=== PATIENT | female | born 1945 | race Caucasian/White ===

== ENCOUNTER 2023-10-31 15:45 | Emergency (ER) | payer SELFPAY ==
[2023-10-31 15:47] VITALS: BP 172/81
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
[2023-10-31] MEDS: TYLENOL 650 MG PO (17:58)
[2023-10-31 18:00] VITALS: BP 138/85
[2023-10-31 19:29] VITALS: BP 141/74
== END 2023-10-31 19:30 | disposition home or self-care (01) ==
LOC: EMR 15:45
PROVIDERS: EMERGENCY PHYSICIAN Emergency Medicine; FAMILY PHYSICIAN Family Medicine
DX: S09.90XA Unspecified injury of head, initial encounter (principal); R07.89 Other chest pain; V49.50XA Passenger injured in collision with unspecified motor vehicles in traffic accident, initial encounter; Y92.410 Unspecified street and highway as the place of occurrence of the external cause; R03.0 Elevated blood-pressure reading, without diagnosis of hypertension; Z90.49 Acquired absence of other specified parts of digestive tract; Z88.5 Allergy status to narcotic agent
CPT/HCPCS: 99284; 70450; 72125

== ENCOUNTER 2024-04-14 06:37 | Outpatient (RCR) | payer MEDICARE, SELFPAY | END 2024-04-14 23:59 | disposition home or self-care (01) | LOC: RPT 06:37 | PROVIDERS: ATTENDING PHYSICIAN Physician Assistant; FAMILY PHYSICIAN Family Medicine | DX: N39.46 Mixed incontinence (principal); Z73.6 Limitation of activities due to disability | CPT/HCPCS: 97110; 97161; 97530 ==

== ENCOUNTER 2024-05-21 07:56 | Outpatient (RCR) | payer MEDICARE, SELFPAY | END 2024-05-21 23:59 | disposition home or self-care (01) | LOC: RPT 07:56 | PROVIDERS: ATTENDING PHYSICIAN Physician Assistant; FAMILY PHYSICIAN Family Medicine | DX: N39.46 Mixed incontinence (principal); Z73.6 Limitation of activities due to disability | CPT/HCPCS: 97110; 97530 ==

== ENCOUNTER 2024-06-18 07:15 | Outpatient (RCR) | payer MEDICARE, SELFPAY | END 2024-06-18 23:59 | disposition home or self-care (01) | LOC: RPT 07:15 | PROVIDERS: ATTENDING PHYSICIAN Physician Assistant; FAMILY PHYSICIAN Family Medicine | DX: N39.46 Mixed incontinence (principal); Z73.6 Limitation of activities due to disability | CPT/HCPCS: 97110; 97112 ==

== ENCOUNTER 2024-07-07 07:33 | Outpatient (RCR) | payer MEDICARE, SELFPAY | END 2024-07-07 23:59 | disposition home or self-care (01) | LOC: RPT 07:33 | PROVIDERS: ATTENDING PHYSICIAN Physician Assistant; FAMILY PHYSICIAN Family Medicine | DX: N39.46 Mixed incontinence (principal); Z73.6 Limitation of activities due to disability; R35.0 Frequency of micturition | CPT/HCPCS: 97110; 97112 ==

== ENCOUNTER 2024-08-16 19:28 | Emergency (ER) | payer MEDICARE, SELFPAY ==
[2024-08-16 19:28] VITALS: BMI 26.0
[2024-08-16 19:40] VITALS: BP 146/86
[2024-08-16 20:10] LABS: % Basophils 0.2 % (0-2); % Eosinophils 0.4 % (0-6); % Immature Granulocytes 0.3 % (0-0.5); % Lymphocytes 3.1 % (20.5-51.1); Absolute Lymphocytes 0.3 10^3/uL (1.2-3.4); Absolute Monocytes 0.3 10^3/uL (0.1-0.6); Absolute Neutrophils 9.4 10^3/uL (1.4-6.5); Hematocrit 40.9 % (37.0-47.0); Hemoglobin 14.1 g/dL (12.0-16.0); Mean Corp Hgb Conc. 34.5 g/dL (33.0-37.0); Mean Corpuscular Hgb 34.2 pg (27.0-31.0); Mean Corpuscular Volume 99.3 fL (81.0-99.0); Mean Platelet Volume 9.1 fL (7.4-10.4); Nucleated Red Blood Cells % 0 %; Platelet Count 276 10^3/uL (130-400); Red Blood Cell Count 4.12 10^6/uL (4.20-5.40); Red Cell Dist. Width 12.9 % (11.5-14.5); White Blood Cell Count 10.1 10^3/uL (4.8-10.8)
[2024-08-16 20:42] LABS: ALT (SGPT) 16 U/L (0-35); AST (SGOT) 19 U/L (14-36); Albumin 4.3 g/dl (3.5-5.0); Alkaline Phosphatase 81 U/L (38-126); Blood Urea Nitrogen 17 mg/dl (7-17); Calcium 9.7 mg/dl (8.4-10.2); Carbon Dioxide 24 mmol/L (22-30); Glucose 134 mg/dl (70-99); Total Bilirubin 0.7 mg/dl (0.2-1.3); Total Protein 7.1 g/dl (6.3-8.2); eGFR > 60.00
[2024-08-16 21:16] LABS: Chloride 99 mmol/L (98-107); Potassium 4.3 mmol/L (3.5-5.1); Sodium 136 mmol/L (135-145)
--- NOTE | 2024-08-16 21:56 | ED.GENMED ---
History of Present Illness
General
Chief Complaint: Abdominal Pain
Time Seen by Provider: 08/16/24 21:56
History of Present Illness
History of Present Illness:
TIME OF INITIAL ENCOUNTER: 10 PM
HPI: At around 1 PM today, the patient developed lower abdominal discomfort. This was associate with multiple rounds of vomiting. She never had any diarrhea. Approximately 2 years ago, she had a small bowel obstruction that occurred the day after
a urologic procedure. The discomfort currently is overall improving but she would like something 'mild' to help take the edge off. Overall she is improved currently. No fevers. Denies any other symptoms.
EXAM:
GENERAL: Well appearing in no distress
HEENT: Moist oral mucosa
CARDIOVASCULAR: No murmurs, normal heart rate, regular rhythm, No chest wall tenderness
PULMONARY: No respiratory distress, breath sounds are clear and equal
ABDOMEN: Soft with no peritoneal signs, minimal if any lower abdominal tenderness, no upper abdominal tenderness
NEUROLOGIC: Excellent strength all extremities, no coordination deficits
PSYCHIATRIC: Appropriate mental status, normal insight and judgement
EXTREMITIES: Nontender, no edema, moves all extremities equally
SKIN: No rash, no lesions
NUMBER AND COMPLEXITY OF PROBLEMS ADDRESSED AT THE ENCOUNTER
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
� Acute Exacerbation and/or Progression of Chronic Illness: This is an acute problem
� Differential Diagnosis includes: Bowel obstruction, ileus, constipation, mesenteric adenitis, low suspicion for foodborne illness/gastroenteritis given the lack of diarrhea
AMOUNT AND/OR COMPLEXITY OF DATA TO BE REVIEWED AND ANALYZED
� I performed an independent evaluation of and my interpretation is:
EKG:
CT: CT imaging suggests mild enterocolitis, no bowel obstruction, she has had cholecystectomy and appendectomy
X-rays:
Laboratory Studies: White count 10.1, hemoglobin normal chemistries unremarkable
Other:
� Review of other/old records: I reviewed records, in 2019, the patient had a 15 cm segment of small bowel herniated through prior port site, necrotic bowel resected with primary stapled anastomosis in 2020
� Clinical information was obtained by an independent historian: I spoke to daughter at bedside
� Prescriptions/Medications Considered but not given:
� Further testing considered but not performed:
RISK OF COMPLICATIONS AND/OR MORBIDITY OR MORTALITY OF PATIENT MANAGEMENT
� Social determinants of health affecting care: Lives at home by herself
� Discussion with other providers:
� Escalation of care including admission/observation vs risk of discharge considered:the patient presents with lower abdominal pain with overall spontaneous improvement however some discomfort persist. She never had any
diarrhea. Labs unremarkable. Will obtain CT imaging given patient's prior history.
ANY OTHER UPDATES:
12:46 AM: I reassessed patient after she received IV fluids, Toradol, and Zofran. She overall feels significantly improved and feels comfortable going home. Will send prescription for Zofran to her pharmacy. CT imaging suggests mild enterocolitis
however she is improved and appears comfortable on reassessment.
Past History
Past History
ED Past Medical History: None
ED Past Surgical History: Cholecystectomy, Gynecological and Other (masectomy)
Social History
Tobacco: Non-smoker
Personal:
Phy Exam
Physical Exam
Physical Exam:
See HPI
Course
Orders/Labs/Results
Orders:
Orders
08/16/24 20:02
Complete Blood Count/With Diff Urgent
Comprehensive Metabolic Panel Urgent
08/16/24 22:05
Ketorolac [Toradol] 15 mg .ROUTE .STK-MED ONE
Ondansetron Injectable [Zofran] 4 mg .ROUTE .STK-MED ONE
08/16/24 22:06
0.9% Sodium Chloride 500 ml [Nss] 500 ml IV BOLUS
Ketorolac [Toradol] 15 mg IV NOW STA
Ondansetron Injectable [Zofran] 4 mg IV NOW STA
08/17/24 00:30
CT Abd/pelvis W Iv Cont Urgent
Reason For Exam: lower pain resolving vomiting; prior sbo
Abnormal Lab Results
08/16/24
20:02
RBC 4.12 L 10^6/uL
(4.20-5.40)
MCV 99.3 H fL
(81.0-99.0)
MCH 34.2 H pg
(27.0-31.0)
Absolute Neuts (auto) 9.4 H 10^3/uL
(1.4-6.5)
Absolute Lymphs (auto) 0.3 L 10^3/uL
(1.2-3.4)
Neutrophils % 93.0 H %
(42.2-75.2)
Lymphocytes % 3.1 L %
(20.5-51.1)
Glucose 134 H mg/dl
(70-99)
08/16/24 20:02
08/16/24 20:02
Vital Signs
Initial and Last Documented VS:
Initial Vital Signs
Temp Pulse Resp BP Pulse Ox
36.9 C 97 18 146/86 97
08/16/24 19:40 08/16/24 19:40 08/16/24 19:40 08/16/24 19:40 08/16/24 19:40
Last Documented Vital Signs
Temp Pulse Resp BP Pulse Ox
36.9 C 73 11 133/64 96
08/16/24 19:40 08/17/24 00:30 08/17/24 00:30 08/17/24 00:25 08/17/24 00:30
*Critical Care Note
Total Time (30-74mins, 75-104mins- exclusive of procedures): Not Applicable
ED Attending Note
-
Portions of this chart may have been created with voice recognition software.� Occasional wrong word or��sound alike� substitutions may have occurred due to the inherent limitations of voice recognition software.
Discharge Plan
Departure
Prescriptions:
No Action
calcium carbonate 500 MG tablet
500 mg PO DAILY
cholecalciferol (vitamin D3) 2,000 UNIT tablet
2,000 unit PO DAILY
tramadol [Ultram] 50 MG tablet
50 mg PO Q6HPRN PRN (Reason: pain) Qty: 12 0RF
Referrals:
NONE,* [Active] -
Interventions
Interventions:
*Risk Screen - Suicide Last Done: 08/16/24 19:40
*General Assessment Last Done: 08/16/24 19:40
*Neglect/Abuse Screening Last Done: 08/16/24 19:40
ED- Fall Risk Assessment Last Done: 08/16/24 22:03
XK-Xssssl-Pjqydxmamf Assessment Last Done: 08/16/24 22:03
Discharge Date and Time
Print Language: CHADIAN
[2024-08-16 22:11] VITALS: BP 155/65
[2024-08-16] MEDS: NSS 500 IV (22:13)
[2024-08-16] MEDS: TORADOL 15 MG IV (22:13)
[2024-08-16] MEDS: ZOFRAN 4 MG IV (22:13)
--- NOTE | 2024-08-16 23:55 | EDRN ---
Pt.'s visitor approached RN twice now, asking when pt. is able to go to CT. RN spoke w/ CT, again, and CT is not ready for pt. CT states will call this RN when ready for pt. Pt.'s visitor once again informed, RN apologized for wait time.
[2024-08-17 00:25] VITALS: BP 133/64
== END 2024-08-17 01:07 | disposition home or self-care (01) ==
LOC: EMR 19:28
PROVIDERS: Emergency Medicine; EMERGENCY PHYSICIAN Emergency Medicine; FAMILY PHYSICIAN Family Medicine
DX: R10.30 Lower abdominal pain, unspecified (principal); R11.10 Vomiting, unspecified; Z90.49 Acquired absence of other specified parts of digestive tract; Z87.19 Personal history of other diseases of the digestive system
CPT/HCPCS: 96374; 96375; 96361; 99284; 74177; 80053; 85025; Q9967

== ENCOUNTER → 2024-09-16 13:08 | Outpatient (REF) | payer MEDICARE, SELFPAY | LOC: MRI 3T 13:08 | PROVIDERS: ATTENDING PHYSICIAN Student in an Organized Health Care Education/Training Program; FAMILY PHYSICIAN Family Medicine | DX: M25.511 Pain in right shoulder (principal) | CPT/HCPCS: 73221 ==

== ENCOUNTER → 2024-10-04 08:41 | Outpatient (REF) | payer MEDICARE, SELFPAY ==
[2024-10-04 09:30] LABS: % Basophils 0.7 % (0-2); % Immature Granulocytes 0.2 % (0-0.5); % Lymphocytes 25.1 % (20.5-51.1); % Monocytes 7.8 % (1.7-9.3); % Neutrophils 63.2 % (42.2-75.2); Absolute Eosinophils 0.2 10^3/uL (0-0.7); Absolute Lymphocytes 1.4 10^3/uL (1.2-3.4); Absolute Monocytes 0.4 10^3/uL (0.1-0.6); Absolute Neutrophils 3.4 10^3/uL (1.4-6.5); Hematocrit 38.5 % (37.0-47.0); Hemoglobin 12.9 g/dL (12.0-16.0); Mean Corp Hgb Conc. 33.5 g/dL (33.0-37.0); Mean Corpuscular Hgb 34.5 pg (27.0-31.0); Mean Corpuscular Volume 102.9 fL (81.0-99.0); Mean Platelet Volume 9.4 fL (7.4-10.4); Nucleated Red Blood Cells % 0 %; Platelet Count 275 10^3/uL (130-400); Red Blood Cell Count 3.74 10^6/uL (4.20-5.40); White Blood Cell Count 5.4 10^3/uL (4.8-10.8)
[2024-10-04 11:15] LABS: Blood Urea Nitrogen 15 mg/dl (7-17); Carbon Dioxide 26 mmol/L (22-30); Chloride 102 mmol/L (98-107); Glucose 106 mg/dl (70-99); Potassium 4.8 mmol/L (3.5-5.1); Sodium 141 mmol/L (135-145); eGFR > 60.00
== END ==
LOC: REG 08:41
PROVIDERS: ATTENDING PHYSICIAN Specialist; FAMILY PHYSICIAN Family Medicine
DX: Z01.818 Encounter for other preprocedural examination (principal)
CPT/HCPCS: 36415; 80048; 85025; 93005

== ENCOUNTER 2024-10-05 06:31 | Emergency (ER) | payer MEDICARE, SELFPAY ==
[2024-10-05 06:34] VITALS: BP 140/78
--- NOTE | 2024-10-05 07:07 | ED.GENMED ---
History of Present Illness
<Antonia Steinberg MD, Resident - Last Filed: 10/05/24 08:50>
General
Chief Complaint: Abdominal Pain
Time Seen by Provider: 10/05/24 06:37
History of Present Illness
History of Present Illness:
This is an 79-year-old female who presents to the ER complaining of lower abdominal tenderness. Patient reports symptoms started yesterday after she had yogurt. She felt a dull gas pain that she describes as an 8 out of 10 in the lower abdominal
area. Pain did not radiate anywhere else. She had a bowel movement afterwards which was normal consistency but did not relieve pain. She has tried Gas-X for pain but symptoms have not improved. She denies fevers, chills, no urinary frequency.
She denies chest pain, shortness of breath. She admits mild nausea and one-time vomiting episode yesterday with symptom improved this morning. She is scheduled for a right shoulder replacement next week, but denies using more Tylenol/ibuprofen
than usual.
Past History
<Antonia Steinberg MD, Resident - Last Filed: 10/05/24 08:50>
Past History
ED Past Medical History: None
ED Past Surgical History: Cholecystectomy, Gynecological and Other (masectomy)
Social History
Tobacco: Non-smoker
Alcohol: Occasional
Drug: None
Personal:
Phy Exam
<Antonia Steinberg MD, Resident - Last Filed: 10/05/24 08:50>
General Physical Exam
General Presentation: well appearing and no apparent distress
Cardiovascular Exam
Cardiovascular Exam: regular rate/rhythm and no edema
Pulmonary Exam
Pulmonary Exam: lungs clear and no respiratory distress
Gastrointestinal Exam
Gastrointestinal Exam: normal bowel sounds, soft, non distended and tender (Tender to palpation in the lower abdominal area, next to the groin)
Neurological Exam
Neurological Exam: alert and oriented x3
Musculoskeletal Exam
Musculoskeletal Exam: full ROM
Psychiatric Exam
Psychiatric Exam: normal mood/affect
Course
<Antonia Steinberg MD, Resident - Last Filed: 10/05/24 08:50>
Orders/Labs/Results
Orders:
Orders
10/05/24 07:06
Electrocardiogram (*1) Urgent
Reason for Study: Abdominal Pain
EKG- Treatment ONCE
10/05/24 07:09
Dicyclomine [Bentyl] 20 mg PO NOW STA
10/05/24 06:47
10/05/24 06:47
Vital Signs
Initial and Last Documented VS:
Initial Vital Signs
Temp Pulse Resp BP Pulse Ox
97.5 F 108 20 140/78 97
10/05/24 06:34 10/05/24 06:34 10/05/24 06:34 10/05/24 06:34 10/05/24 06:34
Last Documented Vital Signs
Temp Pulse Resp BP Pulse Ox
97.5 F 108 20 140/78 97
10/05/24 06:34 10/05/24 06:34 10/05/24 06:34 10/05/24 06:34 10/05/24 06:34
<Tripp Merrill, DO - Last Filed: 10/05/24 07:15>
Orders/Labs/Results
Orders:
Orders
10/05/24 07:06
Electrocardiogram (*1) Urgent
Reason for Study: Abdominal Pain
EKG- Treatment ONCE
10/05/24 07:09
Dicyclomine [Bentyl] 20 mg PO NOW STA
10/05/24 06:47
10/05/24 06:47
Vital Signs
Initial and Last Documented VS:
Initial Vital Signs
Temp Pulse Resp BP Pulse Ox
97.5 F 108 20 140/78 97
10/05/24 06:34 10/05/24 06:34 10/05/24 06:34 10/05/24 06:34 10/05/24 06:34
Last Documented Vital Signs
Temp Pulse Resp BP Pulse Ox
97.5 F 108 20 140/78 97
10/05/24 06:34 10/05/24 06:34 10/05/24 06:34 10/05/24 06:34 10/05/24 06:34
<Antonia Steinberg MD, Resident - Last Filed: 10/05/24 08:50>
MDM/Problems Addressed
MDM/Problems Addressed:
This is an 79-year-old female who presents with lower abdominal discomfort that she describes as a gas pain. Pain does not radiate anywhere else. Patient is in no distress, abdomen soft, nondistended, tender in the lower abdominal area next to the
groin. Will order EKG. She completed blood work yesterday for preprocedure right shoulder replacement which were unremarkable. She recently had a CT scan with IV contrast in July due to abdominal pain which was unremarkable at that time. At
this time, will give a dose of Bentyl and monitor. No signs of obstruction, no signs of Infectious etiology, no fevers she is well-appearing and in no distress
<Antonia Steinberg MD, Resident - Last Filed: 10/05/24 08:50>
*Critical Care Note
Total Time (30-74mins, 75-104mins- exclusive of procedures): Not Applicable
<Antonia Steinberg MD, Resident - Last Filed: 10/05/24 08:50>
Update Note
Update Note:
Evaluated patient at bedside after administration of dicyclomine. Patient reports symptoms are resolved. Physical examination with a nontender abdomen. Will discharge on Bentyl and advised to follow-up with PCP
ED Attending Note
<Antonia Steinberg MD, Resident - Last Filed: 10/05/24 08:50>
-
Portions of this chart may have been created with voice recognition software.� Occasional wrong word or��sound alike� substitutions may have occurred due to the inherent limitations of voice recognition software.
<Tripp Merrill, DO - Last Filed: 10/05/24 07:15>
ED Attending Note
Patient seen and examined by attending physician: Yes
I performed a history and physical exam of patient and discussed management with resident, I reviewed resident's note and agree with documented findings and plan of care.: Yes
ED Attending Note:
I have seen and evaluated the patient with a [id number] encounter. I have spoken to the resident and involved in the medical history, the physical exam, medical decision making.
Evaluation and management service: agree unless noted differently below.
Results interpretation: agree unless noted differently below.
Focused HPI: 79-year-old female presenting for evaluation of abdominal discomfort described as gassy pain. This occurred yesterday after eating yogurt. Patient is currently being worked up for shoulder replacement. She denies any current
increased use of Motrin. Denies any trouble passing her stool. She states her last bowel movement was yesterday. She denies urinary symptoms. She denies vomiting.
Physical exam: Sitting in bed comfortable. Heart regular rate and rhythm. Abdomen soft and nontender
Medical Decision Making: Will obtain screening EKG and give dose of Bentyl. Patient had recent blood work and recent CT scan of her abdomen. She has a nontender exam and is extremely well-appearing nontoxic.
Given no fever, doubt infectious etiology. Given no real tenderness, doubt surgical pathology. She has no clinical exam findings to suggest obstruction.
Discharge Plan
Departure
Patient Disposition: Home (Routine Discharge)
Date of Disposition: 10/05/24
Time of Disposition: 08:37
Patient with high blood pressure during this ER visit?: Yes
Discharge Problem:
Abdominal pain
Discharge Problem:
(Ruled Out): Strangulated ventral incisional hernia
Prescriptions:
New
dicyclomine 20 mg tablet
20 mg PO BID Qty: 10 0RF
No Action
calcium carbonate 500 MG tablet
500 mg PO DAILY
cholecalciferol (vitamin D3) 2,000 UNIT tablet
2,000 unit PO DAILY
tramadol [Ultram] 50 MG tablet
50 mg PO Q6HPRN PRN (Reason: pain) Qty: 12 0RF
ondansetron HCl 4 mg tablet
4 mg PO Q6H PRN (Reason: nausea and vomiting) Qty: 12 0RF
Referrals:
Awilda Ward MD [Family Provider] - Follow up in 2-3 days
Interventions
Interventions:
*Risk Screen - Suicide Last Done: 10/05/24 06:34
*General Assessment Last Done: 10/05/24 06:44
*Neglect/Abuse Screening Last Done: 10/05/24 06:34
*ED- Fall Risk Assessment Last Done: 10/05/24 06:44
*ED COVID-19 Vaccine History Last Done: 10/05/24 06:44
XR-Drnrks-Nnfwqxpewh Assessment Last Done: 10/05/24 07:15
Discharge Date and Time
Print Language: MACEDONIAN
[2024-10-05] MEDS: BENTYL 20 MG PO (07:32)
== END 2024-10-05 09:30 | disposition home or self-care (01) ==
LOC: EMR 06:31
PROVIDERS: EMERGENCY PHYSICIAN Student in an Organized Health Care Education/Training Program; FAMILY PHYSICIAN Family Medicine
DX: R10.30 Lower abdominal pain, unspecified (principal); R11.2 Nausea with vomiting, unspecified; R03.0 Elevated blood-pressure reading, without diagnosis of hypertension; Z90.49 Acquired absence of other specified parts of digestive tract; Z88.5 Allergy status to narcotic agent
CPT/HCPCS: 99283; 93005

== ENCOUNTER → 2024-10-06 15:08 | Outpatient (REF) | payer MEDICARE, SELFPAY ==
[2024-10-06 16:39] LABS: % Basophils 0.4 % (0-2); % Eosinophils 0.3 % (0-6); % Immature Granulocytes 0.1 % (0-0.5); % Lymphocytes 16.4 % (20.5-51.1); % Monocytes 12.1 % (1.7-9.3); % Neutrophils 70.7 % (42.2-75.2); Absolute Lymphocytes 1.3 10^3/uL (1.2-3.4); Absolute Monocytes 0.9 10^3/uL (0.1-0.6); Absolute Neutrophils 5.4 10^3/uL (1.4-6.5); Hematocrit 42.4 % (37.0-47.0); Hemoglobin 14.6 g/dL (12.0-16.0); Mean Corp Hgb Conc. 34.4 g/dL (33.0-37.0); Mean Corpuscular Hgb 34.5 pg (27.0-31.0); Mean Corpuscular Volume 100.2 fL (81.0-99.0); Mean Platelet Volume 9.5 fL (7.4-10.4); Nucleated Red Blood Cells % 0 %; Platelet Count 304 10^3/uL (130-400); Red Blood Cell Count 4.23 10^6/uL (4.20-5.40); Red Cell Dist. Width 12.9 % (11.5-14.5); White Blood Cell Count 7.6 10^3/uL (4.8-10.8)
[2024-10-06 16:50] LABS: ALT (SGPT) 19 U/L (0-35); AST (SGOT) 23 U/L (14-36); Albumin 4.4 g/dl (3.5-5.0); Alkaline Phosphatase 85 U/L (38-126); Blood Urea Nitrogen 33 mg/dl (7-17); Carbon Dioxide 27 mmol/L (22-30); Glucose 112 mg/dl (70-99); Lipase 33 U/L (23-300); Total Protein 7.4 g/dl (6.3-8.2); eGFR > 60.00
[2024-10-06 17:06] LABS: Calcium 10.4 mg/dl (8.4-10.2); Chloride 99 mmol/L (98-107); Potassium 4.7 mmol/L (3.5-5.1); Sodium 139 mmol/L (135-145)
== END ==
LOC: RAD 15:08
PROVIDERS: ATTENDING PHYSICIAN Physician Assistant
DX: K43.2 Incisional hernia without obstruction or gangrene (principal); R63.0 Anorexia; R11.0 Nausea; R10.84 Generalized abdominal pain
CPT/HCPCS: 36415; 74177; 80053; 83690; 85025; Q9967

== ENCOUNTER 2024-10-06 23:48 | Inpatient (IN) | payer MEDICARE, SELFPAY ==
[2024-10-06 21:47] VITALS: BP 125/88
--- NOTE | 2024-10-06 22:48 | ED.GENMED ---
History of Present Illness
General
Chief Complaint: Abdominal Pain
Source: patient, previous radiology exam (CT abdomen pelvis performed this evening showing small bowel obstruction. Laboratory studies this afternoon, unremarkable.) and previous hospital records (Hospitalization April 2020 for small bowel
obstruction related to strangulated ventral incisional hernia)
Exam Limitations: none
Time Seen by Provider: 10/06/24 22:24
Nursing documentation reviewed up to this point in time: agreed with
History of Present Illness
History of Present Illness:
This is an 79-year-old woman who has remote history of left breast cancer, remote history of laparoscopic cholecystectomy in the as well as history of small bowel obstruction April 2020 related to strangulated ventral incisional hernia. She
required small bowel resection during that hospitalization April 2020.
Evaluated in this ED July of this year with generalized lower abdominal pain, CAT scan showed mildly dilated loops of small bowel but no evidence of obstruction, thought to be related to enteritis.
She was evaluated in this ED yesterday with complaints of lower abdominal pain that began 2 days ago, bloating. She was given a dose of Bentyl with improvement. Discharged to home.
Follow-up with PCP today however patient continues with abdominal pain, crampy in nature, abdominal bloating, nausea, vomiting.
Repeat blood work today again unremarkable with normal white blood cell count. Outpatient CT abdomen pelvis however shows small bowel obstruction with multiple loops of dilated small bowel with transition site in the upper abdomen, proximal to the
anastomosis. Transitioning small bowel demonstrates circumferential wall thickening which may be reactive inflammation.
PCP notified patient of CAT scan results and recommended she return to the ED.
Patient admits that she has had no oral intake for the past 2 days. Abdominal pain is crampy, moderate in nature. Intermittent nausea. No fever no chills.
Past History
Past History
ED Past Medical History: Cancer (Left breast cancer) and Other (Small bowel obstruction April 2020 related to strangulated ventral incisional hernia)
ED Past Surgical History: Bowel resection (Small bowel resection-strangulated ventral incisional hernia April 2020), Cholecystectomy (1971), Gynecological (Left breast cancer-bilateral mastectomy 2007; hysterectomy, bladder lift) and Other
(masectomy)
Social History
Tobacco: Non-smoker
Alcohol: Occasional
Drug: None
Personal:
Living: with family
Employment: Retired
Family History
Family History: Other (Noncontributory)
Phy Exam
Physical Exam
Physical Exam:
GENERAL: 79-year-old woman appears somewhat younger than stated age, bright and alert, pleasant, appears in no acute distress. Daughter is accompanying.
EYE: anicteric
NECK: Supple, nontender, no meningismus, no significant adenopathy.
ENT: posterior pharynx is clear, oral mucosa is dry. No rhinorrhea.
CARDIAC: Regular rate and rhythm. no murmur.
LUNGS: Clear breath sounds bilaterally, no acute respiratory distress, no wheezes/rales/rhonchi
ABDOMEN: Soft, minimally distended, moderate generalized tenderness mid to lower abdomen, no r/g, no cvat. Mildly hyperactive bowel sounds.
NEUROLOGICAL: Alert and oriented x3, no focal neuro deficits. Gait is steady.
SKIN: Warm and dry, normal color, skin intact. No rash.
MUSCULOSKELETAL: No C/C/E. peripheral pulses are full and equal b/l. No palpable tenderness.
PSYCH: Normal and appropriate interaction.
Course
Orders/Labs/Results
Orders:
Orders
10/06/24 22:25
Lactic Acid Urgent
0.9% Sodium Chloride 1000 ml [Nss] 1,000 ml IV BOLUS
10/06/24 22:43
GI tube insertion- Treatment ONCE
10/06/24 22:47
HYDROmorphone [Dilaudid] 0.5 mg IV NOW STA
Ondansetron Injectable [Zofran] 4 mg IV NOW STA
Vital Signs
Initial and Last Documented VS:
Initial Vital Signs
Temp Pulse Resp BP Pulse Ox
98.5 F 108 16 125/88 97
10/06/24 21:47 10/06/24 21:47 10/06/24 21:47 10/06/24 21:47 10/06/24 21:47
Last Documented Vital Signs
Temp Pulse Resp BP Pulse Ox
98.5 F 108 16 125/88 97
10/06/24 21:47 10/06/24 21:47 10/06/24 21:47 10/06/24 21:47 10/06/24 21:47
MDM/Problems Addressed
Differential Diagnosis Includes:
Patient presents with ongoing abdominal pain, nausea, vomiting that began [address] shows small bowel obstruction likely related to adhesions.
Laboratory studies from this afternoon unremarkable with normal white blood cell count, normal H&H. Mild macrocytosis is stable and unchanged.
Chemistries show moderate prerenal azotemia with BUN of 33, has trended up from 15 yesterday. Clinically patient is moderately dehydrated. Consistent with poor oral intake over the past 2 days accompanied with nausea/vomiting.
Will check lactic acid, assess for potential ischemic bowel.
Overall hemodynamically stable.
Will initiate IV fluid resuscitation, IV Dilaudid for pain, (has tolerated dilaudid in the past) Zofran for nausea.
Will plan for NG tube insertion to low intermittent suction.
Will admit to hospital service.
Plan for general surgery consult.
Chronic conditions affecting care: Previous abdomnial surgery
Acute Exacerbation and/or Progression of Chronic Illness: Previous abdomnial surgery
*Radiology
Radiology exam reviewed: radiology read reviewed
*Pulse Oximetry
Patient hypoxic: no
*Critical Care Note
Total Time (30-74mins, 75-104mins- exclusive of procedures): Not Applicable
ED Attending Note
-
Portions of this chart may have been created with voice recognition software.� Occasional wrong word or��sound alike� substitutions may have occurred due to the inherent limitations of voice recognition software.
Discharge Plan
Departure
Patient Disposition: Admit
Date of Disposition: 10/06/24
Time of Disposition: 23:00
Admit to: Med/Surg
Admit to doctor: Remedios
Presentation/result/management discussed w/ accepting MD/DO: Hospitalist
Discharge Problem:
SBO (small bowel obstruction), Acute dehydration
Prescriptions:
No Action
calcium carbonate 500 MG tablet
500 mg PO DAILY
cholecalciferol (vitamin D3) 2,000 UNIT tablet
2,000 unit PO DAILY
dicyclomine 20 mg tablet
20 mg PO BID Qty: 10 0RF
Theragen Tablet
1 tab PO DAILY
acetaminophen [Tylenol Extra Strength] 500 mg Tablet
1,000 mg PO Q6HPRN PRN (Reason: mild pain)
ascorbic acid (vitamin C) [Vitamin C] 500 mg Tablet
500 mg PO DAILY
ferrous sulfate 325 mg (65 mg iron) Tablet
325 mg PO Q48H
vitamin B complex Tablet
1 tab PO DAILY
vitamin E 268 mg (400 unit) Capsule
268 mg PO DAILY
biotin 5 mg Tablet
5 mg PO DAILY
ondansetron HCl 4 mg tablet
4 mg PO Q6HPRN PRN (Reason: nausea and vomiting)
Referrals:
Awilda Ward MD [Family Provider] -
Interventions
Interventions:
*Risk Screen - Suicide Last Done: 10/06/24 21:48
*General Assessment Last Done: 10/06/24 22:24
*Neglect/Abuse Screening Last Done: 10/06/24 21:48
*ED COVID-19 Vaccine History Last Done: 10/06/24 22:24
Discharge Date and Time
Print Language: SENEGALESE
[2024-10-06] MEDS: NSS 1000 IV (22:55)
[2024-10-06] MEDS: DILAUDID 0.5 MG IV (22:55)
[2024-10-06] MEDS: ZOFRAN 4 MG IV (22:56)
[2024-10-06 22:58] VITALS: BP 151/71
[2024-10-06 23:00] VITALS: BP 148/73
[2024-10-06 23:11] LABS: Lactic Acid 1.5 mmol/L (0.7-2.0)
--- NOTE | 2024-10-06 23:17 | W.PN.UPDATE ---
Update Note
Progress Note Update
Patient seen in conjunction with LUMBER TRIPPER. I agree with the findings and physical. I concur with assessment and plan unless otherwise stated.
Briefly, he is an 79-year-old with past medical history of left breast cancer, history of multiple surgeries including a remote laparoscopic cholecystectomy, history of small bowel obstruction in 2019 related to strangulated ventral incisional
hernia status post bowel resection, she has had laparscopic Hysterectomy and BSO, Cystocele Repair and Bladder Lift complaining with generalized abdominal pain.
Patient was evaluated in the emergency department 1 year ago with complaints of lower abdominal pain for 2 days and bloating. She was treated with Bentyl with improvement. However after returning home patient continued to have abdominal pain and
nausea bloating and vomiting. She is physician before obtaining outpatient CT scan and blood work. The CT scan shows a new small bowel obstruction with dilated loops of bowel and a transition site in the of the upper abdomen, proximal to the
anastomosis. There is some demonstrated circumferential wall thickening which may be reactive or inflammatory.
Emergency Department today, she was afebrile, blood pressure was 125/88 with pulse of 108 she was satting 97% on room air.
White count was 7.6, hemoglobin 14.6 ambulate 3-4. Electrolytes BUN/creatinine were all normal. LFTs were unremarkable. Lactate negative.
Abdomen had benign appearance, no rebound or guarding and non-tender after 1 dose of dilaudid. Normal active bowel sounds noted.
Assessment and plan
79 y.o with h/o multiple abdominal surgery coming in w/ 2 -3 days of abdominal pain and found to have SBO with transition point. She had nausea and vomiting as well. She is currently afebrile, hemodynamically stable and comfortable appearing.
- admit to med/surg
- npo for now
- antiemetics, pain control
- NG decompression
- maintenance fluids
- f/u abd xray in am
- surgery consultation
DVT PPx - lovenox sq
Code status
--- NOTE | 2024-10-06 23:29 | HPS.HSE ---
Family Physician
-
Family Physician: Awilda Ward
Chief Complaint
-
Abdominal Pain
History of Present Illness
Patient is an 79 y/o female past medical history of small bowel obstruction secondary to strangulated incisional hernia who presents with abdominal pain. Patient developed generalized abdominal cramping two days ago. She was seen in the emergency
department yesterday at which time it was felt her pain was related to gas and she was given Bentyl. She continued with abdominal pain and saw her PCP earlier today who ordered a CT scan which revealed a small bowel obstruction. Patient reports
continued abdominal cramping and associated dry heaves.
Medical History
Past Medical History
Past Medical History: Reports Other
Additional Past Medical History:
Breast Cancer
Small Bowel Obstruction secondary to Strangulated Incisional Hernia
Past Surgical History: Reports Other
Additional Past Surgical History:
Bilateral Mastectomy
Open Cholecystectomy
Open Appendectomy
Supracervical Hysterectomy with Bilateral BSO
Sacral Colpopexy
Small Bowel Resection for Strangulated Ventral Incision Hernia
Social History
Tobacco: Non-smoker
Alcohol: Occasional
Family History
Family History: Not pertinent
Allergies / Home Medications
Allergies reflects when Allergies were last updated in [facility].
Home Medications with original date entered in [facility]
Allergy/Medication List:
Allergies
Allergy/AdvReac Type Severity Reaction Status Date / Time
codeine [Codeine] Allergy Hives Verified 10/05/24 06:36
Home Medications
calcium carbonate 500 mg PO DAILY Supplement 05/03/20
cholecalciferol (vitamin D3) 50 mcg (2,000 unit) tablet 2,000 unit PO DAILY Supplement 05/03/20
dicyclomine 20 mg tablet 20 mg PO BID #10 tabs 10/05/24
acetaminophen 500 mg tablet (Tylenol Extra Strength) 1,000 mg PO Q6HPRN PRN mild pain 10/06/24
ascorbic acid (vitamin C) 500 mg tablet (Vitamin C) 500 mg PO DAILY 10/06/24
biotin 5 mg tablet 5 mg PO DAILY 10/06/24
ferrous sulfate 325 mg (65 mg iron) tablet 325 mg PO Q48H 10/06/24
ondansetron HCl 4 mg tablet 4 mg PO Q6HPRN PRN nausea and vomiting 10/06/24
therapeutic multivitamin 1 tab PO DAILY 10/06/24
vitamin B complex 1 tab PO DAILY 10/06/24
vitamin E 268 mg (400 unit) capsule 268 mg PO DAILY 10/06/24
Review of Systems
-
A 12 point ROS was completed and negative except as noted: Yes
Constitutional: Denies Fever
Respiratory: Denies Cough or Trouble Breathing
Cardiac: Denies Chest Pain or Palpitations
Abdomen/GI: Reports See HPI
Physical Exam
Vital Signs
Vital Signs
Temp Pulse Resp BP Pulse Ox
98.5 F 84 16 148/73 96
10/06/24 21:47 10/06/24 23:15 10/06/24 23:15 10/06/24 23:00 10/06/24 22:30
Physical Exam
General: Comfortable and Conversant
HEENT: Anicteric and Moist mucous membranes
Respiratory: Clear and Non Labored Respirations
Cardiac: S1/S2 and Regular Rhythm
GI: Soft, Non Tender (Following dose of Dilaudid given in ED) and Other (Slightly hypoactive bowel sounds )
Rectal: Deferred by Provider
Musculoskeletal: No Clubbing, No Cyanosis and No Edema
Skin: Warm and Dry
Neuro: Awake, Alert, Oriented and Nonfocal/grossly intact
Psych: Calm
Laboratory Results
-
Laboratory Results
Lactic Acid 1.5 mmol/L (0.7-2.0) 10/06/24 22:51
Laboratory Tests
10/06/24
16:28
WBC 7.6
Hgb 14.6
Hct 42.4
Plt Count 304
Sodium 139
Potassium 4.7
Chloride 99
Carbon Dioxide 27
BUN 33 H
Creatinine 0.9
Glucose 112 H
Abd/Pelvis CT Scan:
Small bowel obstruction with transition in the upper abdomen, proximal to the anastomosis.
Data Reviewed
-
CT Scan: Report Reviewed by me
Lab Data: Labs Reviewed by me
Impression/Plan
-
Small Bowel Obstruction
-Consult General Surgery
-Place NG Tube
-Continue NPO/IVFs
-Continue Zofran prn nausea
-Continue IV pain meds prn
-Check Abd X-Ray in AM to follow-up contrast from CT scan
Hx Breast Cancer s/p Bilateral Mastectomy
DVT proph: Lovenox
Code Status: Full Code
[2024-10-07] VITALS: BP 141/65
[2024-10-07 00:55] VITALS: BP 150/71; BMI 24.2
[2024-10-07] MEDS: NSS 1000 IV ×2 (01:36→14:12)
--- NOTE | 2024-10-07 01:47 | TRANSFER ---
Received pt from ED at 0055 dx SBO. Rashmi garcia NGT to LIWS. Pt denied pain. Pt AAOx4 able to make all needs known. VS WNL. Pt instructed on use of call pierre for all needs. Call pierre within reach, bed in lowest position.
[2024-10-07 07:10] VITALS: BP 132/60
[2024-10-07 07:49] LABS: Hematocrit 32.5 % (37.0-47.0); Hemoglobin 11.1 g/dL (12.0-16.0); Mean Corp Hgb Conc. 34.2 g/dL (33.0-37.0); Mean Corpuscular Hgb 34.6 pg (27.0-31.0); Mean Corpuscular Volume 101.2 fL (81.0-99.0); Mean Platelet Volume 9.5 fL (7.4-10.4); Platelet Count 226 10^3/uL (130-400); Red Blood Cell Count 3.21 10^6/uL (4.20-5.40); Red Cell Dist. Width 12.7 % (11.5-14.5); White Blood Cell Count 5.2 10^3/uL (4.8-10.8)
--- NOTE | 2024-10-07 08:28 | W.PN.HOSP.TC ---
Today's Communication/Plan
-
Clamp NG tube if okay with surgeon
Assessment / Plan
Assessment / Plan
79-year-old presented with abdominal pain
10/06/2024-CT abdomen with IV and oral contrast-small bowel obstruction with transition in the upper abdomen proximal to the anastomosis. Transitioning small bowel demonstrate circumferential wall thickening may be reactive inflammation. Prior
cholecystectomy with stable prominence of the intrahepatic and extrahepatic biliary ducts.
EKG sinus rhythm no ischemia
CVS: S1-S2 normal
Chest: CTA B/L
Abdomen: Soft, NGT, BS appreciated
Extremities: No edema, normal pulses
[employer]: Non focal exam
# Small bowel obstruction
History of multiple surgeries including remote laparoscopic cholecystectomy, history of small bowel obstruction in 2019 related to strangulated ventral hernia status post bowel resection, laparoscopic hysterectomy and BSO, cystocele repair and
bladder lift.
Keep n.p.o. with IV fluids and NG tube
Surgery consulted
Pain control and nausea control
Repeat imaging today x-ray-shows oral contrast passing through the large bowel.
Clamp NG tube if okay with surgeon
# History of breast cancer status post bilateral mastectomy
# DVT prophylaxis-Lovenox
# Full code
Anticipated Discharge: Within 24 hours
Subjective/Interval History
-
Date of Service: October 07, 2024
Objective Data
-
Labs:
Laboratory Results
10/07/24
07:28
WBC 5.2
Hgb 11.1 L D
Hct 32.5 L
Plt Count 226 D
Sodium Pending
Potassium Pending
Chloride Pending
Carbon Dioxide Pending
BUN Pending
Creatinine Pending
Glucose Pending
Calcium Pending
Vital Signs:
Vital Signs
Temp Pulse Resp BP Pulse Ox
99.0 F 91 16 132/60 98
10/07/24 07:10 10/07/24 07:10 10/07/24 07:10 10/07/24 07:10 10/07/24 07:10
I&O
10/06/24 10/07/24 10/08/24
06:59 06:59 06:59
Intake Total 375 / 375
Output Total 600 / 600
Balance -225 / -225
[2024-10-07 08:36] LABS: Blood Urea Nitrogen 26 mg/dl (7-17); Calcium 7.3 mg/dl (8.4-10.2); Carbon Dioxide 25 mmol/L (22-30); Chloride 107 mmol/L (98-107); Estimated Creatinine Clearance 61 ml/min; Glucose 69 mg/dl (70-99); Potassium 3.3 mmol/L (3.5-5.1); Sodium 139 mmol/L (135-145); eGFR > 60.00
--- NOTE | 2024-10-07 08:55 | CON.GS ---
Consultation
-
Reason for Consultation: SBO
Medical History
-
Chief Complaint: Abdominal pain/distention/nausea vomiting
History of Present Illness:
Patient is an 79-year-old female previously known to our surgical service after hospitalization 05/04/2020 for an acute small bowel obstruction due to early postop incarcerated hernia. She underwent ex lap, small bowel resection and repair of
incisional hernia. Postoperative course was unremarkable. She states that she has done well since then without any symptoms suggestive of recurrent bowel obstruction.
She was in her usual baseline state of health until Friday. She had yogurt and dates for breakfast. Over the weekend she did eat out at an [place] restaurant but felt well after these meals. Friday around lunchtime and into the
afternoon she began developing progressive abdominal distention and discomfort which led into pain by the evening hours. She had 1 bowel movement during the day but it did not alleviate her symptoms. Due to persistent pain and discomfort she
presented for emergency department evaluation on Friday10/05/24. Reviewing medical records no imaging was obtained, she was told she was having gas pains and discharge.
Her symptoms persisted and she continued to be unable to tolerate any p.o. intake. She followed up with her primary care yesterday who ordered an outpatient stat CT scan for imaging identifying a small bowel obstruction prompting return to ER and
current hospitalization.
She still has some discomfort in the suprapubic and lower/central abdomen. Some relief with NG tube in place. No further nausea vomiting. No significant passage of flatus or any bowel movement.
Past Medical History
Past Medical History: Other (History of breast cancer)
Past Surgical History: Other (Appendectomy, cholecystectomy, laparoscopic hysterectomy and sacrocolpopexy, exploratory laparotomy, small bowel resection, ventral incisional hernia repair 05/03/2020)
Social History
Tobacco: Non-Smoker
Living: With Family
Employment: Retired
Family History
Family History: Reviewed & Not Pertinent
Allergies / Home Medications
Allergy/AdvReac Type Severity Reaction Status Date / Time
codeine [Codeine] Allergy Hives Verified 10/05/24 06:36
�Medication �Instructions �Recorded �Confirmed �Type
calcium carbonate 500 mg PO DAILY Supplement 05/03/20 10/07/24 History
cholecalciferol (vitamin D3) 50 2,000 unit PO DAILY Supplement 05/03/20 10/07/24 History
mcg (2,000 unit) tablet
dicyclomine 20 mg tablet 20 mg PO BID #10 tabs 10/05/24 10/06/24 Rx
acetaminophen 500 mg tablet 1,000 mg PO Q6HPRN PRN mild pain 10/06/24 10/07/24 History
(Tylenol Extra Strength)
ascorbic acid (vitamin C) 500 mg 500 mg PO DAILY Supplement 10/06/24 10/07/24 History
tablet (Vitamin C)
biotin 5 mg tablet 5 mg PO DAILY Supplement 10/06/24 10/07/24 History
ferrous sulfate 325 mg (65 mg 325 mg PO Q48H Supplement 10/06/24 10/07/24 History
iron) tablet
ondansetron HCl 4 mg tablet 4 mg PO Q6HPRN PRN nausea and 10/06/24 10/06/24 History
vomiting
therapeutic multivitamin 1 tab PO DAILY Supplement 10/06/24 10/07/24 History
vitamin B complex 1 tab PO DAILY Supplement 10/06/24 10/07/24 History
vitamin E 268 mg (400 unit) capsule 268 mg PO DAILY Supplement 10/06/24 10/07/24 History
Review of Systems
-
History Source: Patient
All other systems: Negative unless noted
A 10 point review of systems was completed, and was negative except as per HPI.
Physical Exam
Vital Signs
Temp Pulse Resp BP Pulse Ox
99.0 F 91 16 132/60 98
10/07/24 07:10 10/07/24 07:10 10/07/24 07:10 10/07/24 07:10 10/07/24 07:10
10/06/24 10/07/24 10/08/24
06:59 06:59 06:59
Actual Weight 61.859 kg
Body Mass Index (BMI) 24.2
Lab Results
10/07/24 07:28
10/07/24 07:28
WBC 5.2 10^3/uL (4.8-10.8) 10/07/24 07:28
Hgb 11.1 g/dL (12.0-16.0) L D 10/07/24 07:28
Hct 32.5 % (37.0-47.0) L 10/07/24 07:28
Plt Count 226 10^3/uL (130-400) D 10/07/24 07:28
Physical Exam
General: Well Developed, Well Nourished, No Apparent Distress and Comfortable
HEENT: Normocephalic, Anicteric and Other (Nasogastric tube in place, left naris)
Respiratory: Non Labored Respirations
Cardiac: Regular Rhythm
GI: Soft, Tender (Mild tender palpation periumbilical, suprapubic and bilateral lower quadrants. No rebound rigidity or guarding), Distended (Softly distended, not tense) and Incisions (Multiple prior surgical scars. No obvious hernias.)
Neuro: Awake and AO x 3
Psych: Calm
Data Reviewed
-
CT Scan: Image Personally Visualized and interpreted, Report Reviewed by me and Discussed with Patient
Assessment / Plan
-
Assessment: 79-year-old female presenting with small bowel obstruction, likely adhesive related given her past abdominal surgical history.
CT imaging personally reviewed and interpreted. Radiologist report reviewed as well. Significant gastric and proximal small bowel dilation with oral contrast which gradually tapers down into the region of the sacral promontory and right Isiah
pelvis leading towards her right lower quadrant small bowel anastomosis. Distal to this the small bowel is generally collapsed. Colon is relatively decompressed as well. Slight wall thickening of the small bowel just proximal to the obstruction.
No significant free fluid. No pneumatosis. No radiographic sign suggestive of a closed-loop obstruction.
Plan: Given clinical stability and no radiographic signs of immediate bowel threat or compromise recommend initial attempt at medical management.
NG tube decompression
Follow-up abdominal x-ray imaging today to evaluate for possible progression of oral contrast ingested during yesterday CT imaging
IV fluid hydration, bowel rest
Will follow
--- NOTE | 2024-10-07 09:46 | CM ---
Reviewed the chart notes and spoke with the patient at the bedside. Patient currently with NGT to lws. The patient resides alone in a one story home with no steps to enter. The patient reports no DME or SNF in the past, but has had VN. Patient
could not recall then name of the agency. The patient confirmed her pharmacy of choice is the [facility]. CM continues to be available to patient/family and is monitoring medical plan for needs at discharge.
Plan: Discharge plans will depend on the patient's progress.
--- NOTE | 2024-10-07 10:04 | W.PN.SURGUPD ---
Surgical Update
Surgical Update
Abdominal x-ray imaging reviewed. Oral contrast from yesterday has progressed throughout the colon indicating partial or resolving small bowel obstruction.
Maintain NG tube decompression for now but assess outputs throughout the day today and consider subsequent removal if diminishing
[2024-10-07] MEDS: PROTONIX IV 40 MG IV (10:33)
[2024-10-07 15:45] VITALS: BP 141/57
--- NOTE | 2024-10-07 16:42 | W.PN.SURGUPD ---
Surgical Update
Surgical Update
Patient seen and examined in follow-up.
Daughter at bedside.
Minimal NG tube output today
No flatus or BM yet but no return of abdominal pain. No nausea or vomiting.
Abdomen soft, nondistended and nontender on examination.
Given radiographic and clinical improvement removed NG tube
Okay for sips of clears and ice chips tonight but hold on further dietary advancement until tomorrow.
[2024-10-07] MEDS: LOVENOX 40 MG SC (17:20)
[2024-10-07] MEDS: OFIRMEV 100 IV (21:06)
[2024-10-07 23:25] VITALS: BP 146/65
[2024-10-08] MEDS: NSS 1000 IV (00:21)
[2024-10-08 08:23] LABS: Glucose 52 mg/dl (70-99)
[2024-10-08] MEDS: PROTONIX IV 40 MG IV (08:30)
[2024-10-08 08:48] LABS: Glucose - Point of Care 79 mg/dl (70-99)
[2024-10-08 08:50] VITALS: BP 162/69
--- NOTE | 2024-10-08 08:55 | W.PN.GS2 ---
Addendum entered and electronically signed by Augusto Dale MD 10/08/24 09:10:
Patient seen and examined with surgical PROVIDER SERVICE REPRESENTATIVE. Agree with documented progress note.
Overall patient feeling much better from presenting symptoms.
Tolerated liquids with cramping no pain
No nausea.
No flatus or BM but feels urge to go and some intestinal gurgling.
AFVSS
NAD AAO x 3
ABD: Soft, nondistended, only very slight tenderness on palpation. Tympanitic to percussion.
A/P: 79-year-old female with probable resolving PSBO -radiographically improved and clinically improving.
P.o. challenge starting with full liquids probable advancement later to low residue
Possible DC within the next 24 hours pending dietary tolerance
Will follow.
Original Note:
Today's Communication / Plan
-
Advance diet
Assessment / Plan
-
79 yo female presenting with SBO likely adhesive noted on CT imaging
XR in follow up on 10/07 demonstrated contrast throughout the large bowel
NGT removed on 10/07, tolerating sips of clears
AFVSS
Hypoglycemia this am
--Start full liquids and follow for PO tolerance
--Analgesics/antiemetics prn
--Medical management as per primary team
Subjective Data
-
Date of Service: October 08, 2024
Patient seen and examined at bedside with Dr Dale. Denies n/v. Not passing flatus or stools yet but feels she has had a lot of intestinal gurgling. Tolerating sips of clears. No abdominal pain but some minimal cramping overnight.
Objective Data
-
Intake and Output
10/07/24 10/08/24 10/09/24
06:59 06:59 06:59
Intake Total 375 / 375 2860 / 2860
Output Total 600 / 600
Balance -225 / -225 2860 / 2860
Intake:
Oral fluids 360 / 360
IV fluids (Total) 375 / 375 2400 / 2400
IV piggybacks 100 / 100
Output:
Gastrointestinal tube output ( 600 / 600
Total)
[place] Sump 350 / 350
Other:
Number of approximated MODERATE 1
amounts of urine
Number of approximated LARGE 1
amounts of urine
Vital Signs
Temp Pulse Resp BP Pulse Ox
98.3 F 95 16 162/69 95
10/08/24 08:50 10/08/24 08:50 10/08/24 08:50 10/08/24 08:50 10/08/24 08:50
Lab Results
10/07/24 07:28
Calcium Cancelled 10/08/24 07:19
Physical Exam
-
NAD
ABD soft, ND, mild tenderness to middle abdomen
[2024-10-08 09:44] LABS: Blood Urea Nitrogen 23 mg/dl (7-17); Calcium 8.8 mg/dl (8.4-10.2); Carbon Dioxide 24 mmol/L (22-30); Chloride 108 mmol/L (98-107); Estimated Creatinine Clearance 61 ml/min; Glucose 102 mg/dl (70-99); Potassium 3.8 mmol/L (3.5-5.1); Sodium 140 mmol/L (135-145); eGFR > 60.00
[2024-10-08] MEDS: NSS IV (12:48)
--- NOTE | 2024-10-08 14:13 | W.PN.HOSP.TC ---
Addendum entered and electronically signed by Hilda Resendiz MD 10/08/24 16:50:
Dictation- [id number]
Original Note:
Today's Communication/Plan
-
Discharge after dinner if tolerates
Assessment / Plan
Assessment / Plan
79-year-old presented with abdominal pain
10/06/2024-CT abdomen with IV and oral contrast-small bowel obstruction with transition in the upper abdomen proximal to the anastomosis. Transitioning small bowel demonstrate circumferential wall thickening may be reactive inflammation. Prior
cholecystectomy with stable prominence of the intrahepatic and extrahepatic biliary ducts.
EKG sinus rhythm no ischemia
CVS: S1-S2 normal
Chest: CTA B/L
Abdomen: Soft, NGT, BS appreciated
Extremities: No edema, normal pulses
DIE ENGRAVER: Non focal exam
# Small bowel obstruction
History of multiple surgeries including remote laparoscopic cholecystectomy, history of small bowel obstruction in 2019 related to strangulated ventral hernia status post bowel resection, laparoscopic hysterectomy and BSO, cystocele repair and
bladder lift.
Resolving. Symptoms are much better.
Surgery consulted and following
Repeat imaging today x-ray-shows oral contrast passing through the large bowel.
Started on a diet. Patient seems to be tolerating
# History of breast cancer status post bilateral mastectomy
# DVT prophylaxis-Lovenox
# Full code
D/W Surgeon
Anticipated Discharge: Today
Subjective/Interval History
-
Date of Service: October 08, 2024
Objective Data
-
Labs:
Laboratory Results
10/08/24 10/08/24
07:19 09:16
Sodium Cancelled 140
Potassium Cancelled 3.8
Chloride Cancelled 108 H
Carbon Dioxide Cancelled 24
BUN Cancelled 23 H
Creatinine Cancelled 0.6
Glucose 52 L* 102 H
Calcium Cancelled 8.8 D
Vital Signs:
Vital Signs
Temp Pulse Resp BP Pulse Ox
98.3 F 95 16 162/69 95
10/08/24 08:50 10/08/24 08:50 10/08/24 08:50 10/08/24 08:50 10/08/24 08:50
I&O
10/07/24 10/08/24 10/09/24
06:59 06:59 06:59
Intake Total 375 / 375 2860 / 2860
Output Total 600 / 600
Balance -225 / -225 2860 / 2860
--- NOTE | 2024-10-08 15:03 | CM ---
Patient seen at bedside. IMM completed and signed form placed on chart. Patient stated that she does not need VN and daughter will provide transportation home. CM will continue to follow for discharge planning needs.
Plan; home with no needs.
[2024-10-08 16:00] VITALS: BP 162/99
--- NOTE | 2024-10-08 16:50 | W.DS.TRANS ---
DC Summary - Instrument Technologist
-
Discharge Instructions:
Discharge Diagnosis/Procedures Small bowel obstruction
Diet Low Residue
Activity As tolerated
Driving Restrictions As prior to admission
Instructions:
Stand-Alone Forms:
Changes to Home Medications: No
Discharge Medications:
DC Medications w/original date entered in [facility]
calcium carbonate 500 mg PO DAILY Supplement 05/03/20
cholecalciferol (vitamin D3) 50 mcg (2,000 unit) tablet 2,000 unit PO DAILY Supplement 05/03/20
acetaminophen 500 mg tablet (Tylenol Extra Strength) 1,000 mg PO Q6HPRN PRN mild pain 10/06/24
ascorbic acid (vitamin C) 500 mg tablet (Vitamin C) 500 mg PO DAILY Supplement 10/06/24
biotin 5 mg tablet 5 mg PO DAILY Supplement 10/06/24
ferrous sulfate 325 mg (65 mg iron) tablet 325 mg PO Q48H Supplement 10/06/24
ondansetron HCl 4 mg tablet 4 mg PO Q6HPRN PRN nausea and vomiting 10/06/24
therapeutic multivitamin 1 tab PO DAILY Supplement 10/06/24
vitamin B complex 1 tab PO DAILY Supplement 10/06/24
dicyclomine 20 mg tablet 20 mg PO BID PRN Pain #10 tabs 10/08/24
Home Medication Changes
Pending Results: No
[2024-10-08] MEDS: LOVENOX SC (17:04)
[2024-10-08] MEDS: LOVENOX 40 MG SC (17:41)
== END 2024-10-08 17:48 | disposition home or self-care (01) | DRG 390 ==
LOC: 2 SOUTH 23:48
PROVIDERS: Physician Assistant Medical; ADMITTING PHYSICIAN Internal Medicine; ATTENDING PHYSICIAN Hospitalist; EMERGENCY PHYSICIAN Emergency Medicine; FAMILY PHYSICIAN Family Medicine; OTHER PHYSICIAN Surgery
DX: K56.51 Intestinal adhesions [bands], with partial obstruction (principal); E86.0 Dehydration; E16.2 Hypoglycemia, unspecified; Z79.899 Other long term (current) drug therapy; Z85.3 Personal history of malignant neoplasm of breast; Z88.5 Allergy status to narcotic agent; Z90.13 Acquired absence of bilateral breasts and nipples; Z90.49 Acquired absence of other specified parts of digestive tract; Z90.711 Acquired absence of uterus with remaining cervical stump; Z98.0 Intestinal bypass and anastomosis status
CPT/HCPCS: 43752; 74018; 80048; 82947; 82962; 83605; 85027; 96361; 96374; 96375; 99284

== ENCOUNTER → 2024-11-10 09:23 | Outpatient (REF) | payer MEDICARE, SELFPAY ==
[2024-11-10 11:26] LABS: Blood Urea Nitrogen 11 mg/dl (7-17); Calcium 10.1 mg/dl (8.4-10.2); Carbon Dioxide 30 mmol/L (22-30); Chloride 104 mmol/L (98-107); Glucose 97 mg/dl (70-99); Potassium 5.3 mmol/L (3.5-5.1); Sodium 141 mmol/L (135-145); eGFR > 60.00
[2024-11-10 12:12] LABS: % Basophils 0.7 % (0-2); % Eosinophils 1.2 % (0-6); % Immature Granulocytes 0.4 % (0-0.5); % Lymphocytes 25.3 % (20.5-51.1); % Neutrophils 64.4 % (42.2-75.2); Absolute Eosinophils 0.1 10^3/uL (0-0.7); Absolute Lymphocytes 1.4 10^3/uL (1.2-3.4); Absolute Monocytes 0.5 10^3/uL (0.1-0.6); Absolute Neutrophils 3.6 10^3/uL (1.4-6.5); Hematocrit 40.4 % (37.0-47.0); Hemoglobin 13.4 g/dL (12.0-16.0); Mean Corp Hgb Conc. 33.2 g/dL (33.0-37.0); Mean Corpuscular Hgb 34.4 pg (27.0-31.0); Mean Corpuscular Volume 103.9 fL (81.0-99.0); Mean Platelet Volume 10.2 fL (7.4-10.4); Nucleated Red Blood Cells % 0 %; Platelet Count 286 10^3/uL (130-400); Red Blood Cell Count 3.89 10^6/uL (4.20-5.40); Red Cell Dist. Width 12.7 % (11.5-14.5); White Blood Cell Count 5.6 10^3/uL (4.8-10.8)
== END ==
LOC: RAD 09:23
PROVIDERS: ATTENDING PHYSICIAN Specialist; FAMILY PHYSICIAN Family Medicine
DX: Z01.818 Encounter for other preprocedural examination (principal)
CPT/HCPCS: 36415; 80048; 85025

== ENCOUNTER 2024-11-17 08:48 | Outpatient (RCR) | payer MEDICARE, SELFPAY | END 2024-11-17 23:59 | disposition home or self-care (01) | LOC: RPT 08:48 | PROVIDERS: ATTENDING PHYSICIAN Specialist; FAMILY PHYSICIAN Family Medicine | DX: M75.121 Complete rotator cuff tear or rupture of right shoulder, not specified as traumatic (principal); Z73.6 Limitation of activities due to disability; M62.81 Muscle weakness (generalized); X50.1XXD Overexertion from prolonged static or awkward postures, subsequent encounter | CPT/HCPCS: 97010; 97110; 97162 ==

== ENCOUNTER → 2024-11-25 10:22 | Outpatient (REF) | payer MEDICARE, SELFPAY ==
[2024-11-25 11:34] LABS: Blood Urea Nitrogen 21 mg/dl (7-17); Calcium 9.4 mg/dl (8.4-10.2); Carbon Dioxide 23 mmol/L (22-30); Chloride 107 mmol/L (98-107); Glucose 103 mg/dl (70-99); Potassium 4.5 mmol/L (3.5-5.1); Sodium 137 mmol/L (135-145); eGFR > 60.00
== END ==
LOC: REG 10:22
PROVIDERS: ATTENDING PHYSICIAN Physician Assistant
DX: E87.5 Hyperkalemia (principal)
CPT/HCPCS: 36415; 80048

== ENCOUNTER 2024-12-08 07:50 | Outpatient (RCR) | payer MEDICARE, SELFPAY | END 2024-12-08 23:59 | disposition home or self-care (01) | LOC: RPT 07:50 | PROVIDERS: ATTENDING PHYSICIAN Specialist; FAMILY PHYSICIAN Family Medicine | DX: M75.121 Complete rotator cuff tear or rupture of right shoulder, not specified as traumatic (principal); Z73.6 Limitation of activities due to disability; M62.81 Muscle weakness (generalized); X50.1XXD Overexertion from prolonged static or awkward postures, subsequent encounter | CPT/HCPCS: 97010; 97110; 97140 ==

== ENCOUNTER 2025-01-19 09:08 | Outpatient (RCR) | payer MEDICARE, SELFPAY | END 2025-01-19 23:59 | disposition home or self-care (01) | LOC: RPT 09:08 | PROVIDERS: ATTENDING PHYSICIAN Physician Assistant Surgical; FAMILY PHYSICIAN Family Medicine | DX: Z47.1 Aftercare following joint replacement surgery (principal); Z73.6 Limitation of activities due to disability; M25.511 Pain in right shoulder; M62.81 Muscle weakness (generalized); Z96.611 Presence of right artificial shoulder joint | CPT/HCPCS: 97010; 97110; 97140; 97162 ==

== ENCOUNTER 2025-02-14 08:48 | Outpatient (RCR) | payer MEDICARE, SELFPAY | END 2025-02-14 23:59 | disposition home or self-care (01) | LOC: RPT 08:48 | PROVIDERS: ATTENDING PHYSICIAN Physician Assistant Surgical; FAMILY PHYSICIAN Family Medicine | DX: Z47.1 Aftercare following joint replacement surgery (principal); Z73.6 Limitation of activities due to disability; M25.511 Pain in right shoulder; M62.81 Muscle weakness (generalized); Z96.611 Presence of right artificial shoulder joint | CPT/HCPCS: 97010; 97110; 97112; 97140 ==

== ENCOUNTER 2025-03-21 08:58 | Outpatient (RCR) | payer MEDICARE, SELFPAY | END 2025-03-21 14:38 | disposition home or self-care (01) | LOC: RPT 08:58 | PROVIDERS: ATTENDING PHYSICIAN Physician Assistant Surgical; FAMILY PHYSICIAN Family Medicine | DX: Z47.1 Aftercare following joint replacement surgery (principal); Z73.6 Limitation of activities due to disability; M25.511 Pain in right shoulder; M62.81 Muscle weakness (generalized); Z96.611 Presence of right artificial shoulder joint | CPT/HCPCS: 97010; 97110; 97112; 97140 ==